=== PATIENT | female | born 1965 | race Caucasian/White ===

== ENCOUNTER 2019-07-06 11:49 | Emergency (ER) | payer SELFPAY ==
[2019-07-06] MEDS ORDERED: KETOROLAC TROMETHAMINE INJ 30 MG/ML VIAL IM ONE (12:51)
[2019-07-06 13:42] VITALS: TEMP 98
[2019-07-06] MEDS ORDERED: SODIUM CHLORIDE 0.9% 1000ML 1,000 ML IVS ONE (14:35)
[2019-07-06] MEDS ORDERED: SODIUM CHLORIDE 0.9% (FLUSH) 10 ML SYG IV PRN (14:40)
--- NOTE | 2019-07-06 15:30 | CT ---
EXAM DESCRIPTION: Head CLINICAL HISTORY: weakness COMPARISON: None available TECHNIQUE: Non contrast cranial CT with multiplanar reconstructions. FINDINGS: No acute intracranial hemorrhage, transcortical infarct, mass or mass effect. No intra or extra-axial fluid collection. No focal edema or midline shift. The solis-white matter differentiation is intact. Mild periventricular and deep white matter hypodensities are nonspecific but likely related to chronic microvascular ischemic changes. Mild prominence of the bilateral lateral ventricles, slightly greater than expected for the degree of sulcal enlargement. In addition there is moderate right and mild left atrophy of the temporal lobes. No displaced calvarial fracture. Focal mucoperiosteal thickening within the left posterior maxillary sinus. The remainder of the visualized paranasal sinuses and the mastoids are clear. IMPRESSION: 1. No acute intracranial abnormality. 2. Moderate bilateral temporal lobes atrophy (more significant on the right). Findings are greater than expected for age. 3. Mild prominence of the bilateral lateral ventricles, slightly greater than expected for the degree of sulcal enlargement, nonspecific. Normal pressure hydrocephalus can be considered within the appropriate clinical setting. This exam was performed according to our departmental dose-optimization program, which includes automated exposure control, adjustment of the mA and/or kV according to patient size and/or use of iterative reconstruction technique. Electronically signed by: Mike Delgado DO 07/06/2019 3:28 PM [facility]
--- NOTE | 2019-07-06 15:32 | RAD ---
EXAM DESCRIPTION: Chest,1 View CLINICAL HISTORY: 54 years Female, sob COMPARISON: 07/04/2019. TECHNIQUE: AP portable chest. FINDINGS/IMPRESSION: The lungs are hypoinflated with mild central pulmonary vascular congestion. Left basilar subsegmental atelectasis. No focal consolidation, significant pneumothorax or pleural effusion seen. The heart is at the upper limits of normal in size. No acute osseous abnormality. Electronically signed by: Mike Delgado DO 07/06/2019 3:30 PM [facility]
--- NOTE | 2019-07-06 17:20 | CT ---
EXAM DESCRIPTION: CTA Chest CLINICAL HISTORY: 54 years, Female, elevated D Dimer COMPARISON: None. TECHNIQUE: Axial images through the chest were performed after the administration of intravenous contrast using a pulmonary embolus protocol. MIPS were performed. This exam was performed according to our departmental dose-optimization program which includes use of Automated Exposure Control, adjustment of the mA and/or kV according to patient size and/or use of iterative reconstruction technique. FINDINGS: No pulmonary embolus is identified. Normal caliber aorta without dissection. No pericardial effusion. No pleural effusion. No focal lung consolidation. No pneumothorax. Patent central airway. Partially visualized fluid collection in the right subcoracoid space measuring at least 5 x 3.5 cm which contains small pockets of air. Multiple mildly prominent right and left axillary lymph nodes. No acute osseous findings. No acute abnormality within the visualized upper abdomen. IMPRESSION: Negative for pulmonary embolism. Partially visualized fluid collection in the right anterior shoulder extending inferiorly from the subcoracoid space measuring at least 5 cm in maximal dimension containing small pockets of air. This may represent a complex joint effusion although infected fluid collection is not entirely excluded. Electronically signed by: Aidan New DO 07/06/2019 5:19 PM [facility]
--- NOTE | 2019-07-06 17:58 | ED.PDOC ---
History of Present Illness - General Chief Complaint: General Time Seen by Provider: 07/06/19 12:50 - History of Present Illness Initial Comments: c/o having intermittent leg pains since many months getting worse since few days went to the urgent care where she was given gabapentin , pt also c/o whole body pain and generalized weakness going of since 2 months , no chest pain or sob . she says that pain mostly comes in her joints with some swelling : Currently she denies for any pain and swelling except for her R hand Improving Factors: nothing Worsening Factors: nothing Allergies/Adverse Reactions: Allergies NO KNOWN ALLERGY Allergy (Verified 07/06/19 12:58) Home Medications: Ambulatory Orders Naproxen [Naprosyn] 500 mg PO BID #10 tab 07/06/19 Review of Systems - Review of Systems Constitutional: States: weakness EENTM: States: no symptoms reported Respiratory: States: no symptoms reported Cardiology: States: no symptoms reported Gastrointestinal/Abdominal: States: no symptoms reported Genitourinary: States: no symptoms reported Musculoskeletal: States: see HPI Skin: States: no symptoms reported Neurological: States: no symptoms reported Endocrine: States: no symptoms reported Hematologic/Lymphatic: States: no symptoms reported Family Medical History - Family History Paternal Family History: Unknown Physical Exam - Physical Exam General Appearance: Alert, Comfortable Eye Exam: bilateral normal Ears, Nose, Throat: hearing grossly normal, normal ENT inspection Neck: non-tender, full range of motion, supple, normal inspection Respiratory: lungs clear, normal breath sounds, no respiratory distress, no acce ssory muscle use Cardiovascular/Chest: regular rate, rhythm Back Exam: normal inspection, no CVA tenderness, no vertebral tenderness Extremity: normal range of motion, non-tender, normal inspection, no pedal edema, no calf tenderness Neurologic: no motor/sensory deficits, alert, normal mood/affect, oriented x 3 Skin Exam: normal color, warm/dry Lymphatic: no adenopathy Progress - Progress Progress: 07/06/19 17:59 Pt D Dimer is high , no specific source of infection or any clot in the body, no pain in calf or thigh , no leg swelling , no abnormal cardiac enzymes , most probaly its joint inflammation /auto immune disease , discuss with the pt to talk to PCP. During the visit saw the pt multiple time answer all the concern of the pt , reviewed labs and X-ray with the pt. Told the pt that if symptoms gets worse , please come back to ER Follow up PCP as soon as possible 07/08/19 22:37 - Results/Orders Results/Orders: Laboratory Results WBC 14.2 K/mm3 (4.8-10.8) H 07/06/19 12:50 RBC 4.48 M/mm3 (4.20-5.40) 07/06/19 12:50 Hgb 13.3 gm/dL (12.0-16.0) 07/06/19 12:50 Hct 39.4 % (36.0-47.0) 07/06/19 12:50 MCV 88.0 fl (81.0-99.0) 07/06/19 12:50 MCH 29.8 pg (27.0-31.0) 07/06/19 12:50 MCHC 33.9 g/dL (33.0-37.0) 07/06/19 12:50 RDW 13.0 % (11.5-14.5) 07/06/19 12:50 Plt Count 589 K/mm3 (130-400) H 07/06/19 12:50 MPV 6.5 fl (7.40-10.4) L 07/06/19 12:50 Absolute Neuts (auto) 11.00 K/uL (1.8-6.8) H 07/06/19 12:50 Absolute Lymphs (auto) 1.70 K/uL (1.0-3.4) 07/06/19 12:50 Absolute Monos (auto) 1.20 K/uL (0.2-0.8) H 07/06/19 12:50 Absolute Eos (auto) 0.20 K/uL (0.0-0.4) 07/06/19 12:50 Absolute Basos (auto) 0.10 K/uL (0.0-0.1) 07/06/19 12:50 Neutrophils % 77.2 % (42.0-78.0) 07/06/19 12:50 Lymphocytes % 12.1 % (20.0-50.0) L 07/06/19 12:50 Monocytes % 8.3 % (2.0-9.0) 07/06/19 12:50 Eosinophils % 1.7 % (1.0-5.0) 07/06/19 12:50 Basophils % 0.7 % (0.0-2.0) 07/06/19 12:50 D-Dimer, Quantitative 4170 ng/ml (131-400) H* 07/06/19 14:40 Sodium 131 mmol/L (135-145) L 07/06/19 18:09 Potassium 4.2 mmol/L (3.6-5.0) 07/06/19 18:09 Chloride 95 mmol/L (101-111) L 07/06/19 18:09 Carbon Dioxide 24 mmol/L (21-31) 07/06/19 18:09 Anion Gap 16.2 (12-18) 07/06/19 18:09 BUN 9 mg/dL (7-18) 07/06/19 18:09 Creatinine 0.60 mg/dL (0.6-1.3) 07/06/19 18:09 BUN/Creatinine Ratio 15.0 (10-20) 07/06/19 18:09 Random Glucose 113 mg/dL (70-105) H 07/06/19 18:09 Serum Osmolality 262.2 mOsm/L (275-295) L 07/06/19 18:09 Lactic Acid 1.2 mmol/L (0.5-2.2) 07/06/19 15:59 Calcium 9.3 mg/dL (8.4-10.2) 07/06/19 18:09 Total Bilirubin 0.5 mg/dL (0.2-1.0) 07/06/19 12:50 AST 37 IU/L (10-42) 07/06/19 12:50 ALT 39 IU/L (10-60) 07/06/19 12:50 Alkaline Phosphatase 69 IU/L (42-121) 07/06/19 12:50 Creatine Kinase 33 IU/L (26-140) 07/06/19 14:40 CK-MB (CK-2) 3.5 ng/mL (0.0-4.4) 07/06/19 14:40 CK-MB (CK-2) % Not Reportable 07/06/19 14:40 Troponin I < 0.02 ng/mL (0.01-0.05) 07/06/19 17:27 B-Natriuretic Peptide 54.5 pg/ml (0-100) 07/06/19 14:40 Serum Total Protein 7.3 gm/dL (6.4-8.2) 07/06/19 12:50 Albumin 2.8 g/dl (3.2-5.5) L 07/06/19 12:50 Globulin 4.5 gm/dL (2.3-3.5) H 07/06/19 12:50 Albumin/Globulin Ratio 0.6 (1.1-1.9) L 07/06/19 12:50 - EKG/XRAY/CT EKG: Sinus, no ST T wave changes Departure - Departure Clinical Impression: General symptom, Generalized pain, Leg pain, bilateral Time of Disposition: 17:59 Disposition: Discharge to Home or Self Care Condition: Good Departure Forms: ED Discharge - Pt. Copy, Patient Portal Self Enrollment Diet: resume usual diet Activity: increase activity as tolerated, walking as tolerated Prescriptions: Naproxen [Naprosyn] 500 mg PO BID #10 tab Home Medications: Ambulatory Orders Naproxen [Naprosyn] 500 mg PO BID #10 tab 07/06/19 Additional Instructions: Follow up with PCP in 1-2 days If symptoms gets worse please come back to ER
[2019-07-06 19:27] VITALS: BP 142/88; O2SAT 96
== END 2019-07-06 19:24 | disposition home or self-care (01) ==
LOC: ER 11:49
DX: M79.604 Pain in right leg (principal); M79.605 Pain in left leg; R68.89 Other general symptoms and signs; R79.89 Other specified abnormal findings of blood chemistry; G31.9 Degenerative disease of nervous system, unspecified
CPT/HCPCS: 36415; 70450; 71045; 71275; 80048; 80053; 82550; 82553; 83605; 83880; 84484; 85025; 85379; 93005; J1885; J7030